=== PATIENT | female | born 1960 | race Caucasian/White ===

== ENCOUNTER 2020-03-15 13:10 | Emergency (ER) | payer OTHER ==
[~2020-03-15 13:10] MED LIST: AMOXICILLIN250 M1 OR; ASPIRIN EC81 MG PO; FLONASE SPRAY50 MCG; HYDROCHLOROT12.5 MG PO; LISINOPRIL10 MG PO; LOPRESSOR 550 MG/TAB PO; LOPRESSOR25 MG PO; LORTAB 5 OR; NAPROSYN500 MG PO; NO HOME MEDS; OMEPRAZOLE20 MG PO; TAM75CAP PO; ZANTAC 150 PO
[2020-03-15 16:01] LABS: IMMATURE GRANULOCYTES 0.6 % (0.0-5.0); MEAN CORPUSCULAR HGB 24.1 pG CALC (26.0-32.0); MEAN CORPUSCULAR HGB CONC 30.3 g/dL CAL (32.0-36.0); NEUT# 7.96 thou/uL (2.00-7.15); RED BLOOD COUNT 4.64 mill/uL (4.20-5.60); RED CELL DISTRI WIDTH 15.4 % (11.5-15.5)
[2020-03-15 16:18] LABS: ANION GAP 9 (6-22 (CALC)); BUN 16 mg/dL (7-17); BUN/CREATININE RATIO 21 (12-20 (CALC)); CARBON DIOXIDE 27 mmol/l (22-30); CHLORIDE 106 mmol/l (95-108); CREATININE 0.8 mg/dL (0.5-1.0); GFR > 60 ML/MIN (>=60 (CALC)); GFR FOR AFR.AMER. > 60 ML/MIN (>=60 (CALC)); POTASSIUM 4.4 mmol/l (3.5-5.1); SODIUM 138 mmol/l (137-146)
[2020-03-15 16:19] LABS: HEMOGLOBIN 11.2 g/dl (12.0-16.0); MEAN CELL VOLUME 79.7 fL CALC (80.0-100.0)
[2020-03-15 16:49] VITALS: BP 178/69
[2020-03-15] MEDS ORDERED: AMOXICILLIN500 M2 PO ×2 (16:53→16:59)
--- NOTE | 2020-03-17 12:29 | NUR ---
Notified patient of negative 03/15/2020 Covid results. Advised patient to follow up with PCP or retuen to ED with urgent needs. Advised patient to continue practicing covid prevention measures. Patient verbalized understanding.
== END 2020-03-15 16:48 | disposition home or self-care (01) | DRG 153 ==
LOC: ED 13:10
PROVIDERS: Family Medicine
DX: J02.0 Streptococcal pharyngitis (principal); M25.531 Pain in right wrist; I10 Essential (primary) hypertension; Z20.828 Contact with and (suspected) exposure to other viral communicable diseases

== ENCOUNTER 2024-06-17 16:25 | Emergency (ER) | payer OTHER ==
[2024-06-17] VITALS (9 sets, daily range): BP systolic 140–190; BP diastolic 59–95
[~2024-06-17] VITALS: Ht 165.1 cm; Wt 115.0 kg
[~2024-06-17 16:25] MED LIST changes: +AMOXICILLIN500 M2 PO
[2024-06-17] MEDS ORDERED: SODIUM CHLORIDE 0.9% 1,000 ML IV ONE (16:50)
[2024-06-17] MEDS ORDERED: hydrALAZINE HCL 20 MG/ML VIAL(1 ML) IV ONE (16:50)
[2024-06-17 17:08] LABS: BASO% 0.4 % (0-3); EOS% 0.6 % (0-8); HEMATOCRIT 37.6 % (37.0-47.0); HEMOGLOBIN 12.3 g/dl (12.0-16.0); IMMATURE GRANULOCYTES 0.5 % (0.0-5.0); LYMPH% 12.4 % (15-41); MEAN CELL VOLUME 83.4 fL CALC (80.0-100.0); MEAN CORPUSCULAR HGB 27.3 pG CALC (26.0-32.0); MEAN CORPUSCULAR HGB CONC 32.7 g/dL CAL (32.0-36.0); MONO% 6.9 % (2-13); NEUT# 10.26 thou/uL (2.00-7.15); NEUT% 79.2 % (42-76); RED BLOOD COUNT 4.51 mill/uL (4.20-5.60); RED CELL DISTRI WIDTH 13.9 % (11.5-15.5)
[2024-06-17 17:20] LABS: ALBUMIN 4.1 g/dL (3.2-5.0); ALKALINE PHOSPHATASE 110 u/l (38-126); ANION GAP 11 (6-22 (CALC)); BILIRUBIN, TOTAL 0.6 mg/dL (0.02-1.3); BUN 13 mg/dL (8-23); BUN/CREATININE RATIO 19 (12-20 (CALC)); CARBON DIOXIDE 24 mmol/l (22-30); CHLORIDE 109 mmol/l (95-108); CREATININE 0.7 mg/dL (0.5-1.0); ESTIMATED GFR 98 ML/MIN (>=90 (CALC)); POTASSIUM 3.9 mmol/l (3.5-5.1); SGOT/AST 30 u/l (9-36); SODIUM 140 mmol/l (137-146); TOTAL PROTEIN 7.5 g/dL (6.3-8.2)
[2024-06-17] MEDS ORDERED: CLONIDINE0.1 MG PO (18:08)
[2024-06-17] MEDS ORDERED: LORazepam 1 MG/TAB PO ONE (18:35)
[2024-06-17] MEDS ORDERED: METOPROL TAR100 MG PO (19:50)
== END 2024-06-17 19:56 | disposition home or self-care (01) | DRG 305 ==
LOC: ED 16:25
PROVIDERS: Family Medicine
DX: I16.1 Hypertensive emergency (principal); L02.91 Cutaneous abscess, unspecified; I10 Essential (primary) hypertension